=== PATIENT | male | born 1955 | race Hispanic/Latino ===

== ENCOUNTER 2018-06-27 17:43 | Emergency (ER) | payer OTHER ==
[2018-06-27 17:53] VITALS: BP 149/93; PULSE 85; RESP 16; TEMP 97.9; O2SAT 99
--- NOTE | 2018-06-27 20:07 | ED PDOC ---
HPI: Head Injury Time Seen by Provider: 06/27/18 17:46 Chief Complaint (Nursing): Abnormal Skin Integrity Chief Complaint (Provider): s/p Fall History Per: Patient History/Exam Limitations: no limitations Injury Occurred (Timing): Just Before Arrival Patient States: Fell Striking Head Additional Complaint(s): 63 year old male presents to the ED for evaluation s/p a trip and fall just prior to arrival where he struck his head against the ground. He denies loss of consciousness, headache, bleeding from nostrils, facial pain, nausea, and previous TBI. Tetanus up to date PMD: patient is currently visiting from [place], does not have one in area Against Medical Advice - AMA Patient Left Against Medical Advice: The patient declines CT head/maxillofacial to have wounds closed and cleaned. This action is against my medical advice. This decision was made with informed refusal. The patient was told that imaging is necessary. Explanation of the reasons why were discussed. The risks were explained to the patient and include, but are not limited to, worsening of known or currently unknown conditions, permanent disability and from undiagnosed or untreated conditions. The patient has the capacity to make this informed decision and understands my explanation of the current medical problem and risks of leaving. The patient voluntarily accepts these risks. The patient was given the opportunity to ask questions and reconsider. The patient was encouraged to return to the Emergency Department at any time for further care. 06/27/18 23:38 Past Medical History Reviewed: Historical Data, Nursing Documentation, Vital Signs Vital Signs: Last Vital Signs Temp 97.9 F 06/27/18 17:44 Pulse 85 06/27/18 17:44 Resp 16 06/27/18 17:44 BP 149/93 H 06/27/18 17:44 Pulse Ox 99 06/27/18 17:44 - Medical History PMH: HTN - Surgical History Surgical History: No Surg Hx - Family History Family History: States: No Known Family Hx - Social History Current smoker - smoking cessation education provided: No Alcohol: None Drugs: Denies - Allergies Allergies/Adverse Reactions: Allergies Allergy/AdvReac Type Severity Reaction Status Date / Time No Known Allergies Allergy Verified 06/27/18 17:44 Review of Systems ROS Statement: Except As Marked, All Systems Reviewed And Found Negative ENT: Negative for: Other (bleeding from nostrils, facial pain) Gastrointestinal: Negative for: Nausea Neurological: Negative for: Headache, Other (loss of consciousness) Physical Exam - Reviewed Nursing Documentation Reviewed: Yes Vital Signs Reviewed: Yes - Physical Exam Appears: Positive for: No Acute Distress Head Exam: Positive for: NORMOCEPHALIC. Negative for: ATRAUMATIC (right forehead: superficial abrasion noted; mid-forehead: 1cm linear very superficial laceration) Skin: Positive for: Normal Color, Warm Eye Exam: Positive for: Normal appearance, EOMI, PERRL ENT: Positive for: Other (right nostril: very superficial avulsion with minimal swelling to nasal bridge; no septal hematoma bilaterally) Neck: Positive for: Normal, Painless ROM (no cervical tenderness), Supple Neurologic/Psych: Positive for: Alert, Oriented (x3), Gait (steady, unassisted). Negative for: Motor/Sensory Deficits - ECG O2 Sat by Pulse Oximetry: 99 (RA) Pulse Ox Interpretation: Normal Medical Decision Making Medical Decision Making: Time: 1899 Initial Impression: s/p trip and fall injuries Initial Plan: --Dermabond Discussion was had about CT head, which he refused. Patient's at bedside is an RN and both her and patient prefer to observe his symptoms and return if they worsen instead of getting a CT head. Patient currently has no pain, nausea, or headache. His wounds were irrigated with a copious amount of saline. His nose wound was dressed with xeroform and dermabond was used on his mid-forehead lac. All questions were answered and patient verbalized understanding of discharge return parameters. Scribe Attestation: Documented by Rosalia Malik, acting as a scribe for Kyle Magdaleno PA-C. Provider Scribe Attestation: All medical record entries made by the Scribe were at my direction and personally dictated by me. I have reviewed the chart and agree that the record accurately reflects my personal performance of the history, physical exam, medical decision making, and the department course for this patient. I have also personally directed, reviewed, and agree with the discharge instructions and disposition. Procedures - Time-Out Type of Procedure: laceration repair Site of Procedure: forehead Correct Patient (with visual ID + MR# on ID Band): Yes Correct Procedure: Yes Correct Site Marked: Yes PA/Tech: Sharla SOLIMAN - Laceration/Wound Repair laceration repair Wound Length (cm): 1 Wound's Depth, Shape: superficial, linear Wound Explored: clean Irrigated w/ Saline (ccs): 50 Betadine Prep?: Yes Wound Repaired With: Skin adhesive Wound Complexity: Simple Sterile Dressing Applied?: Yes Disposition - Clinical Impression Clinical Impression: Left against medical advice, Head injury, Facial laceration - Patient ED Disposition Is Patient to be Admitted: No - Disposition Referrals: Kellee Spears [Outside] Disposition: Routine/Home Disposition Time: 19:00 Condition: STABLE Instructions: Laceration Repair With Glue (DC), Wound Care (DC), Head Injury Observation (DC), Leaving Against Medical Advice Forms: [employer] ([employer]) Print Language: [id number]
== END 2018-06-27 20:00 | disposition home or self-care (01) ==
LOC: H.ER 17:43
DX: S09.90XA Unspecified injury of head, initial encounter (principal); S01.81XA Laceration without foreign body of other part of head, initial encounter; I10 Essential (primary) hypertension; W01.0XXA Fall on same level from slipping, tripping and stumbling without subsequent striking against object, initial encounter; Z87.820 Personal history of traumatic brain injury